=== PATIENT | female | born 1980 | race Caucasian/White ===

== ENCOUNTER 2018-05-07 15:20 | Inpatient (IN) | payer OTHER ==
--- NOTE | 2018-05-07 17:45 | HP ---
"CIWA Score - CIWA Score Nausea/Vomitin-Cont. Nausea/Vomiting Muscle Tremors: 7-Severe,w/o Arm Extended Anxiety: 4-Mod. Anxious/Guarded Agitation: 4-Moderately Restless Paroxysmal Sweats: 4-Forehead w/Sweat Beads Orientation: 0-Oriented Tacttile Disturbances: 4-Moderate Hallucinations (Feels like things are crawling on skin) Auditory Disturbances: 0-None Visual Disturbances: 0-None Headache: 0-None Present CIWA-Ar Total Score: 30 Admission ROS S - HPI Chief Complaint: Here for severe alcohol withdrawal. Allergies/Adverse Reactions: Allergies Allergy/AdvReac Type Severity Reaction Status Date / Time No Known Allergies Allergy Verified 05/07/18 16:42 History of Present Illness: 38 yof fell on face yesterday r/t alcohol intoxication. Had a MRI while in [facility] ER. States has no bone damage. States no visual changes. States facial injury only hurts when it is touched. Was discharged [facility] ER today after receiving Libruim 50 mg, Vit B, and Thiamine. last drink was yesterday. Started drinking a lot at about age 23. Currently drinks 2 pints vodka daily. Denies illicit drug use. Has had 3-5 years of sobriety in past. Search Terms: Liza Gupta, 1980 Search Date: 05/07/2018 05:48:02 PM The Drug Utilization Report below displays all of the controlled substance prescriptions, if any, that your patient has filled in the last twelve months. The information displayed on this report is compiled from pharmacy submissions to the Department, and accurately reflects the information as submitted by the pharmacies. This report was requested by: Kenya Valadez | Reference #: [id number] . Others' Prescriptions Patient Name: Liza Gupta Date: 1980 Address: [address] [place] [address] Sex: Female Rx Written Rx Dispensed Drug Quantity Days Supply Prescriber Name 01/06/2018 01/07/2018 chlordiazepoxide 25 mg capsule 12 3 Marlene Hester - Ebola screening Have you traveled outside of the country in the last 21 days: No (N) Have you had contact with anyone from an Ebola affected area: No Have you been sick,other than usual withdrawal symptoms: No Do you have a fever: No - Review of Systems Constitutional: Diaphoresis, Changes in sleep (Hx. insomnia. Used to take Trazodone and stopped 2 months ago. No driks to aid in sleep.) EENT: reports: Other (Glasses for reading only) Respiratory: reports: No Symptoms reported, Other (Hx asthma. No exacerbation x 6 months. Usually triggered by chemical smells.) Cardiac: reports: No Symptoms Reported GI: reports: Nausea (r/t withdrawal), Poor Appetite (Lost interest in eating.), Vomiting (r/t withdrawal. States has noticed a blood streak in vomitus when threws up.), Other (Denies bloody or black/tarry bowel movements.) : reports: No Symptoms Reported Musculoskeletal: reports: Joint Pain (Hurt (R) knee when fell.) Integumentary: reports: No Symptoms Reported Neuro: reports: Tremors (r/t withdrawal) Endocrine: reports: No Symptoms Reported Hematology: reports: No Symptoms Reported Psychiatric: reports: Orientated x3, Agitated, Anxious, Depressed (Denies thoughts of self harm.) Patient History - Patient Medical History Hx Asthma: Yes (Last exacerbation 6 months ago (wheezing)) Hx Chronic Obstructive Pulmonary Disease (COPD): No Hx Cancer: No Hx Cardiac Disorders: No Hx Congestive Heart Failure: No Hx Hypertension: No Hx Hypercholesterolemia: No Hx Pacemaker: No HX Cerebrovascular Accident: No Hx Seizures: No Hx Dementia: No Hx Diabetes: No Hx Gastrointestinal Disorders: No Hx Liver Disease: No Hx Genitourinary Disorders: No Hx Sexually Transmitted Disorders: No Hx Renal Disease (ESRD): No Hx Thyroid Disease: No Hx Human Immunodeficiency Virus (HIV): No (Negative 1 year ago) Hx Hepatitis C: No Hx Depression: Yes (x 1 month. No carlo. Denies thoughts of harm. ) Hx Suicide Attempt: No Hx Bipolar Disorder: No Hx Schizophrenia: No - Patient Surgical History Past Surgical History: Yes Hx Section: Yes (2013, 2001) - PPD History Previous Implant?: Yes Documented Results: Positive w/o proof (States chest x-ray was negative.) Implanted On Prior [facility] Admission?: No PPD to be Administered?: No - Reproductive History Patient is a Female of Child Bearing Age (11 -55 yrs old): Yes Last Menstrual Period: 03/23/18 (Irrgular menses) Patient : No - Smoking Cessation Smoking history: Never smoked Have you smoked in the past 12 months: No - Substance & Tx. History Hx Alcohol Use: Yes Hx Substance Use: No Substance Use Type: Alcohol Hx Substance Use Treatment: Yes (detox about 2 months ago. ) - Substances Abused Alcohol Route: Oral Frequency: Daily Amount used: 2 PINTS VODKA Age of first use: 18 Date of Last Use: 05/07/18 Admission Physical Exam [facility] - Physical General Appearance: Yes: Moderate Distress, Tremorous, Sweating, Anxious HEENTM: Yes: EOMI, Hearing grossly Normal, Normal Voice, EDITH, Other (Erythema ( R) sclera.) Respiratory: Yes: Chest Non-Tender, Lungs Clear, Normal Breath Sounds, No Respiratory Distress Neck: Yes: No masses,lesions,Nodules, Supple Breast: Yes: Breast Exam Deferred Cardiology: Yes: Regular Rhythm, Regular Rate, S1, S2 Abdominal: Yes: Non Tender, Soft, Increased Bowel Sounds Genitourinary: Yes: Within Normal Limits Back: Yes: Normal Inspection Musculoskeletal: Yes: full range of Motion, Gait Steady Extremities: Yes: Normal Capillary Refill, Normal Inspection, Normal Range of Motion, Non-Tender, Tremors (Gross tremors of hands and arms) Neurological: Yes: aircraft fueler II-XII NML intact, Fully Oriented, Motor Strength 5/5 Integumentary: Yes: Normal Color, Dry, Warm, Erythema ((R) forehead, eye and periorbital area. w/ swelling. Tender to touch.), Other (Superficial abrasion (R ) knee w/ yellowish and erythematous intact skin.) Lymphatic: Yes: Within Normal Limits - Diagnostic (1) Alcohol withdrawal Current Visit: Yes Status: Acute Qualifiers: Complication of substance-induced condition: uncomplicated Qualified Code(s ): F10.230 - Alcohol dependence with withdrawal, uncomplicated (2) History of asthma Current Visit: Yes Status: Acute (3) Obesity (BMI 30-39.9) Current Visit: Yes Status: Acute (4) Facial trauma Current Visit: Yes Status: Acute Qualifiers: Encounter type: subsequent encounter Qualified Code(s): S09.93XD - Unspecified injury of face, subsequent encounter Cleared for Admission [facility] - Detox or Rehab [facility] Level of Care: Medically Managed Detox Regimen/Protocol: Librium"
[2018-05-07] MEDS ORDERED: MAG HYDROX/AL HYDROX/SIMETH 30 ML UNIT-DOSE CUP PO PRN (18:32)
[2018-05-07] MEDS ORDERED: chlordiazePOXIDE HCL 25 MG CAPSULE PO PRN (18:32)
[2018-05-07] MEDS ORDERED: MAGNESIUM CITRATE 300 ML BOTTLE PO PRN (18:32)
[2018-05-07] MEDS ORDERED: guaiFENesin/D-METHORPHAN HB 10 ML UNIT-DOSE CUPS PO PRN (18:32)
[2018-05-07] MEDS ORDERED: LOPERAMIDE HCL 2 MG CAPSULE PO PRN (18:32)
[2018-05-07] MEDS ORDERED: IBUPROFEN 400 MG TABLET (FP) PO PRN (18:32)
[2018-05-07] MEDS ORDERED: P-EPHED 60MG/TRIPROLIDI 2.5MG TABLET PO PRN (18:32)
[2018-05-07] MEDS ORDERED: MAGNESIUM HYDROX 2400MG/30ML ORAL SUSPENSION 30 ML CUP PO PRN (18:32)
[2018-05-07] MEDS ORDERED: MENTHOL/PHENOL 1 EACH UD MM PRN (18:32)
[2018-05-07] MEDS ORDERED: chlordiazePOXIDE HCL 25 MG CAPSULE PO ONE (18:45)
[2018-05-07] MEDS: hydrOXYzine PAMOATE 50 MG CAPSULE (FP) PO PRN (20:29)
[2018-05-07] MEDS ORDERED: MELATONIN 5 MG TABLETS PO PRN (22:00)
[2018-05-07] MEDS: BACITRACIN 0.9 GM PACKET TP SCH (23:20)
[2018-05-07] MEDS: THIAMINE HCL 100 MG TABLET (FP) PO SCH (23:21)
[2018-05-07] MEDS: chlordiazePOXIDE HCL 25 MG CAPSULE PO SCH (23:23)
[2018-05-08] MEDS: chlordiazePOXIDE HCL 25 MG CAPSULE PO SCH ×4 (06:11→22:05)
--- NOTE | 2018-05-08 10:02 | PN ---
[facility] CIWA - CIWA Score Nausea/Vomitin Muscle Tremors: 2 Anxiety: 2 Agitation: 2 Paroxysmal Sweats: 2 Orientation: 0-Oriented Tacttile Disturbances: 2-Mild Itch/Numbness/Burn Auditory Disturbances: 1-Very Mild Visual Disturbances: 1-Very Mild Sensitivity Headache: 3-Moderate CIWA-Ar Total Score: 17 [facility] Progress Note (SOAP) Subjective: Headache, irritability, interrupted sleep, shakes and right eye pain Objective: 05/08/18 09:58 Vital Signs - 8 hr 05/08/18 05/08/18 03:30 06:00 Temperature 98.2 F Pulse Rate 82 Respiratory 16 18 Rate Blood Pressure 147/90 Labs pending Assessment: 05/08/18 09:58 Withdrawal sx Right sue-orbital ecchymosis, swelling, tenderness and mild redness to right sclera all r/t fall with facial injury. Evaluated in ED prior to this admission Elevated blood pressure likely due to alcohol withdrawal, no h/o chronic hypertension Plan: Continue detox, monitor blood pressure, treat headache as needed
[2018-05-08 10:23] LABS: HEMATOCRIT 37.7 % (32.4-45.2); MCH 32.6 pg (25.7-33.7); MCHC 34.4 g/dl (32.0-36.0); MEAN CELL VOLUME 94.9 fl (80-96); PLATELET COUNT 87 K/MM3 (134-434); RBC 3.98 M/mm3 (3.60-5.2); RDW 14.8 % (11.6-15.6); WHITE BLOOD COUNT 2.8 K/mm3 (4.0-10.0)
[2018-05-08 10:30] LABS: URINE APPEARANCE CLOUDY; URINE BILIRUBIN NEGATIVE (<2.0 mg/dL); URINE COLOR YELLOW; URINE GLUCOSE (UA) NEGATIVE (NEGATIVE); URINE KETONE TRACE (NEGATIVE); URINE LEUK ESTERASE NEGATIVE (NEGATIVE); URINE NITRITE NEGATIVE (NEGATIVE); URINE UROBILINOGEN NEGATIVE mg/dL (0.2-1.0)
[2018-05-08 10:33] LABS: URINE PROTEIN 1+ (NEGATIVE)
[2018-05-08 10:47] LABS: EPI CELLS MANY /HPF (FEW); URINE BACTERIA RARE /hpf (NONE SEEN); URINE MUCUS RARE
[2018-05-08 10:50] LABS: ALBUMIN 3.2 g/dl (3.4-5.0); ALK PHOS 65 U/L (45-117); ANION GAP 8 (8-16); BILIRUBIN,TOTAL 1.6 mg/dL (0.2-1.0); BLOOD UREA NITROGEN 6 mg/dL (7-18); CALCIUM 7.9 mg/dL (8.5-10.1); CHLORIDE 102 mmol/L (98-107); CO2 30 mmol/L (21-32); CREATININE 0.7 mg/dL (0.55-1.02); GLUCOSE,RANDOM 82 mg/dL (74-106); POTASSIUM 3.3 mmol/L (3.5-5.1); SGOT/AST 54 U/L (15-37); SGPT/ALT 35 U/L (12-78); SODIUM 140 mmol/L (136-145); TOT PROT 7.2 g/dl (6.4-8.2)
[2018-05-08] MEDS: BACITRACIN 0.9 GM PACKET TP SCH ×2 (11:13→22:05)
[2018-05-08] MEDS: PRENATAL VITAMINS W/ FOLIC ACID TABLET (FP) PO SCH (11:13)
[2018-05-08] MEDS: hydrOXYzine PAMOATE 50 MG CAPSULE (FP) PO PRN ×2 (17:40→22:08)
--- NOTE | 2018-05-08 18:34 | CONSULT ---
[facility] Psychiatric Consult - Data Date of interview: 05/08/18 Admission source: [facility] Identifying data: First admission to [facility] for this 38 y/o female seeking detox treatment on for alcohool dependence.Patient is , a mother of three,domiciled,unemployed and supported on Public Assistance. Substance Abuse History: Discussed with the patient in my interview.Confirms this [facility] report.Smoking history: Never smoked. Have you smoked in the past 12 months: No. - Substance & Tx. History. Hx Alcohol Use: Yes. Hx Substance Use : No. Substance Use Type: Alcohol. Hx Substance Use Treatment: Yes (detox about 2 months ago. ). - Substances Abused. Alcohol. Route: Oral. Frequency: Daily. Amount used: 2 PINTS VODKA. Age of first use: 18. Date of Last Use: 05/07/18 Medical History: Bronchial asthma,obesity,recent history of accidental fall during acute alcohol intoxication (facial bruises + right orbital ecchymosis) .History of two sections. Psychiatric History: Patient admits to a history of one psychiatric hospitalization at the [facility] (3 months ago) .Diagnosed with MDD.According to the patient, she was prescribed psychotropics but she declined adherence and did not follow with aftercare.No afffiliation with OPD care providers.Ms Gupta denies history of suicide attempts. Physical/Sexual Abuse/Trauma History: Stressors : marital difficulties, unemployment,inability to pay rent (lives with her parents),financial constraints and struggle with her dependence on alcohol. Additional Comment: No toxicology to report. Mental Status Exam - Mental Status Exam Alert and Oriented to: Time, Place, Person Cognitive Function: Good Patient Appearance: Well Groomed (overweight) Mood: Nervous, Withdrawn, Anxious Affect: Mood Congruent, Constricted Patient Behavior: Fatigued, Appropriate, Cooperative Speech Pattern: Clear (setswana speaking), Appropriate Voice Loudness: Normal Thought Process: Intact, Goal Oriented Thought Disorder: Not Present Hallucinations: Denies Suicidal Ideation: Denies Homicidal Ideation: Denies Insight/Judgement: Fair Sleep: Fair Appetite: Fair Muscle strength/Tone: Normal Gait/Station: Other (not observed ; patient indicates that she prefers to stay in bed due to unsteady gait) Psychiatric Findings - Problem List ([place] 1, 2,3) (1) Alcohol withdrawal Current Visit: Yes Status: Acute Qualifiers: Complication of substance-induced condition: uncomplicated Qualified Code(s ): F10.230 - Alcohol dependence with withdrawal, uncomplicated (2) Substance induced mood disorder Current Visit: Yes Status: Suspected - Initial Treatment Plan Initial Treatment Plan: Psychoeducation.Sleep hygiene.Detoxification.Support.Observation.
[2018-05-08] MEDS: THIAMINE HCL 100 MG TABLET (FP) PO SCH (22:05)
[2018-05-09] MEDS: chlordiazePOXIDE HCL 25 MG CAPSULE PO SCH ×3 (05:47→17:41)
[2018-05-09] MEDS: PRENATAL VITAMINS W/ FOLIC ACID TABLET (FP) PO SCH (10:13)
[2018-05-09] MEDS: BACITRACIN 0.9 GM PACKET TP SCH ×2 (10:13→22:31)
[2018-05-09] MEDS: hydrOXYzine PAMOATE 50 MG CAPSULE (FP) PO PRN ×3 (12:31→22:34)
--- NOTE | 2018-05-09 14:54 | PN ---
S CIWA - CIWA Score Nausea/Vomitin-Mild Nausea/No Vomiting Muscle Tremors: 4-Moderate,w/Arms Extend Anxiety: 3 Agitation: 3 Paroxysmal Sweats: 1-Minimal Palms Moist Orientation: 0-Oriented Tacttile Disturbances: 0-None Auditory Disturbances: 0-None Visual Disturbances: 0-None Headache: 2-Mild CIWA-Ar Total Score: 14 [facility] Progress Note (SOAP) Subjective: sweat tremor restlessness denies right eye pain denies alteration in vision Objective: 05/09/18 14:55 Vital Signs Temperature 97.7 F 05/09/18 10:00 Pulse Rate 88 05/09/18 10:00 Respiratory Rate 18 05/09/18 10:00 Blood Pressure 121/91 05/09/18 10:00 O2 Sat by Pulse Oximetry (%) Laboratory Last Values WBC 2.8 K/mm3 (4.0-10.0) L 05/08/18 08:00 RBC 3.98 M/mm3 (3.60-5.2) 05/08/18 08:00 Hgb 13.0 GM/dL (10.7-15.3) 05/08/18 08:00 Hct 37.7 % (32.4-45.2) 05/08/18 08:00 MCV 94.9 fl (80-96) 05/08/18 08:00 MCH 32.6 pg (25.7-33.7) 05/08/18 08:00 MCHC 34.4 g/dl (32.0-36.0) 05/08/18 08:00 RDW 14.8 % (11.6-15.6) 05/08/18 08:00 Plt Count 87 K/MM3 (134-434) L 05/08/18 08:00 MPV 9.0 fl (7.5-11.1) 05/08/18 08:00 Sodium 140 mmol/L (136-145) 05/08/18 08:00 Potassium 3.3 mmol/L (3.5-5.1) L 05/08/18 08:00 Chloride 102 mmol/L (98-107) 05/08/18 08:00 Carbon Dioxide 30 mmol/L (21-32) 05/08/18 08:00 Anion Gap 8 (8-16) 05/08/18 08:00 BUN 6 mg/dL (7-18) L 05/08/18 08:00 Creatinine 0.7 mg/dL (0.55-1.02) 05/08/18 08:00 Creat Clearance w eGFR > 60 (>60) 05/08/18 08:00 Random Glucose 82 mg/dL (74-106) 05/08/18 08:00 Calcium 7.9 mg/dL (8.5-10.1) L 05/08/18 08:00 Total Bilirubin 1.6 mg/dL (0.2-1.0) H 05/08/18 08:00 AST 54 U/L (15-37) H 05/08/18 08:00 ALT 35 U/L (12-78) 05/08/18 08:00 Alkaline Phosphatase 65 U/L (45-117) 05/08/18 08:00 Total Protein 7.2 g/dl (6.4-8.2) 05/08/18 08:00 Albumin 3.2 g/dl (3.4-5.0) L 05/08/18 08:00 Urine Color Yellow 05/08/18 08:20 Urine Appearance Cloudy 05/08/18 08:20 Urine pH 8.0 (5.0-8.0) 05/08/18 08:20 Ur Specific [place] 1.014 (1.001-1.035) 05/08/18 08:20 Urine Protein 1+ (NEGATIVE) H 05/08/18 08:20 Urine Glucose (UA) Negative (NEGATIVE) 05/08/18 08:20 Urine Ketones Trace (NEGATIVE) H 05/08/18 08:20 Urine Blood Negative (NEGATIVE) 05/08/18 08:20 Urine Nitrite Negative (NEGATIVE) 05/08/18 08:20 Urine Bilirubin Negative (<2.0 mg/dL) 05/08/18 08:20 Urine Urobilinogen Negative mg/dL (0.2-1.0) 05/08/18 08:20 Ur Leukocyte Esterase Negative (NEGATIVE) 05/08/18 08:20 Urine WBC (Auto) 4 /hpf (3-5) 05/08/18 08:20 Urine RBC (Auto) 1 /hpf (0-3) 05/08/18 08:20 Ur Epithelial Cells Many /HPF (FEW) 05/08/18 08:20 Urine Bacteria Rare /hpf (NONE SEEN) 05/08/18 08:20 Urine Mucus Rare 05/08/18 08:20 RPR Titer Nonreactive (NONREACTIVE) 05/08/18 08:00 lab noted low K+ low wbc Assessment: 05/09/18 14:58 withdrawal sx low K+ Plan: continue detox potassium supplement repeat K+
[2018-05-09] MEDS: POTASSIUM CHLORIDE TABS 20 MEQ TABLET.ER (FP) PO SCH ×2 (15:07→22:31)
[2018-05-09] MEDS: THIAMINE HCL 100 MG TABLET (FP) PO SCH (22:31)
[2018-05-09] MEDS: chlordiazePOXIDE 5 MG CAPSULE PO SCH (22:31)
[2018-05-10] MEDS: chlordiazePOXIDE 5 MG CAPSULE PO SCH ×3 (05:16→16:57)
[2018-05-10] MEDS: POTASSIUM CHLORIDE TABS 20 MEQ TABLET.ER (FP) PO SCH ×2 (10:10→22:12)
[2018-05-10] MEDS: BACITRACIN 0.9 GM PACKET TP SCH ×2 (10:10→22:12)
[2018-05-10] MEDS: PRENATAL VITAMINS W/ FOLIC ACID TABLET (FP) PO SCH (10:10)
[2018-05-10] MEDS: ACETAMINOPHEN 325 MG TABLET (FP) PO PRN ×2 (10:11→17:02)
[2018-05-10 11:11] LABS: HEMATOCRIT 37.2 % (32.4-45.2); HEMOGLOBIN 12.7 GM/dL (10.7-15.3); MCH 32.7 pg (25.7-33.7); MEAN PLT VOLUME 9.4 fl (7.5-11.1); PLATELET COUNT 99 K/MM3 (134-434); RBC 3.87 M/mm3 (3.60-5.2); RDW 14.4 % (11.6-15.6); WHITE BLOOD COUNT 5.4 K/mm3 (4.0-10.0)
--- NOTE | 2018-05-10 12:07 | PN ---
S Progress Note (SOAP) Subjective: no tremor less sweat calm and alert oriented x 3 no acute distress social with peer sin day room Objective: 05/10/18 12:04 Vital Signs Temperature 97.7 F 05/10/18 09:52 Pulse Rate 75 05/10/18 09:52 Respiratory Rate 20 05/10/18 09:52 Blood Pressure 125/81 05/10/18 09:52 O2 Sat by Pulse Oximetry (%) Laboratory Last Values WBC 5.4 K/mm3 (4.0-10.0) 05/10/18 07:00 RBC 3.87 M/mm3 (3.60-5.2) 05/10/18 07:00 Hgb 12.7 GM/dL (10.7-15.3) 05/10/18 07:00 Hct 37.2 % (32.4-45.2) 05/10/18 07:00 MCV 96.0 fl (80-96) 05/10/18 07:00 MCH 32.7 pg (25.7-33.7) 05/10/18 07:00 MCHC 34.0 g/dl (32.0-36.0) 05/10/18 07:00 RDW 14.4 % (11.6-15.6) 05/10/18 07:00 Plt Count 99 K/MM3 (134-434) L 05/10/18 07:00 MPV 9.4 fl (7.5-11.1) 05/10/18 07:00 Sodium 140 mmol/L (136-145) 05/08/18 08:00 Potassium 4.3 mmol/L (3.5-5.1) 05/10/18 07:00 Chloride 102 mmol/L (98-107) 05/08/18 08:00 Carbon Dioxide 30 mmol/L (21-32) 05/08/18 08:00 Anion Gap 8 (8-16) 05/08/18 08:00 BUN 6 mg/dL (7-18) L 05/08/18 08:00 Creatinine 0.7 mg/dL (0.55-1.02) 05/08/18 08:00 Creat Clearance w eGFR > 60 (>60) 05/08/18 08:00 Random Glucose 82 mg/dL (74-106) 05/08/18 08:00 Calcium 7.9 mg/dL (8.5-10.1) L 05/08/18 08:00 Total Bilirubin 1.6 mg/dL (0.2-1.0) H 05/08/18 08:00 AST 54 U/L (15-37) H 05/08/18 08:00 ALT 35 U/L (12-78) 05/08/18 08:00 Alkaline Phosphatase 65 U/L (45-117) 05/08/18 08:00 Total Protein 7.2 g/dl (6.4-8.2) 05/08/18 08:00 Albumin 3.2 g/dl (3.4-5.0) L 05/08/18 08:00 Urine Color Yellow 05/08/18 08:20 Urine Appearance Cloudy 05/08/18 08:20 Urine pH 8.0 (5.0-8.0) 05/08/18 08:20 Ur Specific [place] 1.014 (1.001-1.035) 05/08/18 08:20 Urine Protein 1+ (NEGATIVE) H 05/08/18 08:20 Urine Glucose (UA) Negative (NEGATIVE) 05/08/18 08:20 Urine Ketones Trace (NEGATIVE) H 05/08/18 08:20 Urine Blood Negative (NEGATIVE) 05/08/18 08:20 Urine Nitrite Negative (NEGATIVE) 05/08/18 08:20 Urine Bilirubin Negative (<2.0 mg/dL) 05/08/18 08:20 Urine Urobilinogen Negative mg/dL (0.2-1.0) 05/08/18 08:20 Ur Leukocyte Esterase Negative (NEGATIVE) 05/08/18 08:20 Urine WBC (Auto) 4 /hpf (3-5) 05/08/18 08:20 Urine RBC (Auto) 1 /hpf (0-3) 05/08/18 08:20 Ur Epithelial Cells Many /HPF (FEW) 05/08/18 08:20 Urine Bacteria Rare /hpf (NONE SEEN) 05/08/18 08:20 Urine Mucus Rare 05/08/18 08:20 RPR Titer Nonreactive (NONREACTIVE) 05/08/18 08:00 lab noted Assessment: 05/10/18 12:06 mild withdrawal sx Plan: medically supervised detox oscal
[2018-05-10] MEDS: hydrOXYzine PAMOATE 50 MG CAPSULE (FP) PO PRN ×2 (12:35→17:49)
[2018-05-10] MEDS: RANITIDINE HCL 150 MG TABLET (FP) PO SCH ×2 (12:39→22:12)
[2018-05-10] MEDS: CALCIUM 250MG/VIT-D 125 UNITS 1 COMBO TABLET PO SCH (13:47)
[2018-05-10] MEDS: chlordiazePOXIDE HCL 10 MG CAPSULE PO SCH (22:13)
[2018-05-10] MEDS: THIAMINE HCL 100 MG TABLET (FP) PO SCH (22:14)
[2018-05-10] MEDS: ALBUTEROL SO4 8 GM HFA INHALER IH PRN (22:40)
[2018-05-11] MEDS: chlordiazePOXIDE HCL 10 MG CAPSULE PO SCH ×3 (05:39→17:49)
[2018-05-11] MEDS: hydrOXYzine PAMOATE 50 MG CAPSULE (FP) PO PRN ×2 (05:41→14:27)
--- NOTE | 2018-05-11 08:43 | DS ---
[facility] Detox Discharge Summary Admission Date: 05/07/18 Discharge Date: 05/11/18 - History Present History: Alcohol Dependence Additional Comments: 38 years old female admitted on 05/07/18 for alcohol withdrawal sx completed alcohol detox regimen tolerated well denies alcohol withdrawal sx alert oriented x 3 no acute distress aftercare revelation - Physical Exam Results Vital Signs: Vital Signs Temperature 97.7 F 05/11/18 08:02 Pulse Rate 79 05/11/18 08:02 Respiratory Rate 18 05/11/18 08:02 Blood Pressure 126/74 05/11/18 08:02 O2 Sat by Pulse Oximetry (%) Pertinent Admission Physical Exam Findings: alcohol withdrawal sx Vital Signs Temperature 97.7 F 05/11/18 08:02 Pulse Rate 79 05/11/18 08:02 Respiratory Rate 18 05/11/18 08:02 Blood Pressure 126/74 05/11/18 08:02 O2 Sat by Pulse Oximetry (%) Laboratory Last Values WBC 5.4 K/mm3 (4.0-10.0) 05/10/18 07:00 RBC 3.87 M/mm3 (3.60-5.2) 05/10/18 07:00 Hgb 12.7 GM/dL (10.7-15.3) 05/10/18 07:00 Hct 37.2 % (32.4-45.2) 05/10/18 07:00 MCV 96.0 fl (80-96) 05/10/18 07:00 MCH 32.7 pg (25.7-33.7) 05/10/18 07:00 MCHC 34.0 g/dl (32.0-36.0) 05/10/18 07:00 RDW 14.4 % (11.6-15.6) 05/10/18 07:00 Plt Count 99 K/MM3 (134-434) L 05/10/18 07:00 MPV 9.4 fl (7.5-11.1) 05/10/18 07:00 Sodium 140 mmol/L (136-145) 05/08/18 08:00 Potassium 4.3 mmol/L (3.5-5.1) 05/10/18 07:00 Chloride 102 mmol/L (98-107) 05/08/18 08:00 Carbon Dioxide 30 mmol/L (21-32) 05/08/18 08:00 Anion Gap 8 (8-16) 05/08/18 08:00 BUN 6 mg/dL (7-18) L 05/08/18 08:00 Creatinine 0.7 mg/dL (0.55-1.02) 05/08/18 08:00 Creat Clearance w eGFR > 60 (>60) 05/08/18 08:00 Random Glucose 82 mg/dL (74-106) 05/08/18 08:00 Calcium 7.9 mg/dL (8.5-10.1) L 05/08/18 08:00 Total Bilirubin 1.6 mg/dL (0.2-1.0) H 05/08/18 08:00 AST 54 U/L (15-37) H 05/08/18 08:00 ALT 35 U/L (12-78) 05/08/18 08:00 Alkaline Phosphatase 65 U/L (45-117) 05/08/18 08:00 Total Protein 7.2 g/dl (6.4-8.2) 05/08/18 08:00 Albumin 3.2 g/dl (3.4-5.0) L 05/08/18 08:00 Urine Color Yellow 05/08/18 08:20 Urine Appearance Cloudy 05/08/18 08:20 Urine pH 8.0 (5.0-8.0) 05/08/18 08:20 Ur Specific [place] 1.014 (1.001-1.035) 05/08/18 08:20 Urine Protein 1+ (NEGATIVE) H 05/08/18 08:20 Urine Glucose (UA) Negative (NEGATIVE) 05/08/18 08:20 Urine Ketones Trace (NEGATIVE) H 05/08/18 08:20 Urine Blood Negative (NEGATIVE) 05/08/18 08:20 Urine Nitrite Negative (NEGATIVE) 05/08/18 08:20 Urine Bilirubin Negative (<2.0 mg/dL) 05/08/18 08:20 Urine Urobilinogen Negative mg/dL (0.2-1.0) 05/08/18 08:20 Ur Leukocyte Esterase Negative (NEGATIVE) 05/08/18 08:20 Urine WBC (Auto) 4 /hpf (3-5) 05/08/18 08:20 Urine RBC (Auto) 1 /hpf (0-3) 05/08/18 08:20 Ur Epithelial Cells Many /HPF (FEW) 05/08/18 08:20 Urine Bacteria Rare /hpf (NONE SEEN) 05/08/18 08:20 Urine Mucus Rare 05/08/18 08:20 RPR Titer Nonreactive (NONREACTIVE) 05/08/18 08:00 lab noted - Treatment Hospital Course: Detox Protocol Followed, Detoxed Safely, Responded well, Discharged Condition Good, Rehab Referral Accepted Patient has Accepted a Rehab Referral to: [facility] - Medication Discharge Medications: Ambulatory Orders Albuterol Sulfate Inhaler - [Ventolin HFA Inhaler -] 1 - 2 inh PO Q4H #1 inhaler 05/10/18 - Diagnosis (1) Alcohol dependence with uncomplicated withdrawal Current Visit: Yes Status: Acute (2) Substance induced mood disorder Current Visit: Yes Status: Suspected - AMA Did Patient Leave Against Medical Advice: No
[2018-05-11] MEDS: PRENATAL VITAMINS W/ FOLIC ACID TABLET (FP) PO SCH (10:52)
[2018-05-11] MEDS: POTASSIUM CHLORIDE TABS 20 MEQ TABLET.ER (FP) PO SCH (10:52)
[2018-05-11] MEDS: RANITIDINE HCL 150 MG TABLET (FP) PO SCH (10:53)
[2018-05-11] MEDS: BACITRACIN 0.9 GM PACKET TP SCH (10:53)
[2018-05-11] MEDS: CALCIUM 250MG/VIT-D 125 UNITS 1 COMBO TABLET PO SCH (11:21)
[2018-05-11 18:02] VITALS: BP 133/88; PULSE 93; TEMP 98.4
[2018-05-11] MEDS: ALBUTEROL SO4 8 GM HFA INHALER IH PRN (18:08)
== END 2018-05-11 18:10 | disposition other institution (70) | DRG 775 ==
LOC: YASAS 15:20 → Y6N 17:10
PROVIDERS: ADMIT Surgery; ATTEND Surgery
PROC: HZ2ZZZZ Detoxification Services for Substance Abuse Treatment (ICD-10-PCS; principal; 2018-05-07)
DX: F10.230 Alcohol dependence with withdrawal, uncomplicated (principal); F19.24 Other psychoactive substance dependence with psychoactive substance-induced mood disorder; J45.909 Unspecified asthma, uncomplicated; E66.9 Obesity, unspecified; Z68.30 Body mass index [BMI] 30.0-30.9, adult; S09.93XD Unspecified injury of face, subsequent encounter; W19.XXXD Unspecified fall, subsequent encounter
CPT/HCPCS: 36415; 71046-TC-FY; 80053; 81003; 81015; 84132; 85027; 86593

== ENCOUNTER 2018-05-11 18:38 | Inpatient (IN) | payer OTHER ==
[2018-05-11] MEDS ORDERED: ALBUTEROL SO4 8 GM HFA INHALER IH PRN (19:14)
--- NOTE | 2018-05-11 19:14 | HP ---
[facility] Rehab Assess/Revision - Admission History Admitted to Rehab from: [facility] Date of Admission to Rehab: 05/11/18 - Findings Detox History & Physical reviewed: Yes Concur with findings: Yes Inpatient Rehab Admission - Initial Determination Are CD services needed?: Yes Free of communicable disease: Yes Not in need of hospitalization: Yes - Rehab Admission Criteria Previous failed treatment: Yes Poor recovery environment: Yes Comorbidities: Yes Lacks judgement: Yes Patient is meeting Inpatient Rehab admission criteria:: Yes
[2018-05-11] MEDS ORDERED: P-EPHED 60MG/TRIPROLIDI 2.5MG TABLET PO PRN (19:15)
[2018-05-11] MEDS ORDERED: ACETAMINOPHEN 325 MG TABLET (FP) PO PRN (19:15)
[2018-05-11] MEDS ORDERED: guaiFENesin/D-METHORPHAN HB 10 ML UNIT-DOSE CUPS PO PRN (19:15)
[2018-05-11] MEDS ORDERED: MAGNESIUM HYDROX 2400MG/30ML ORAL SUSPENSION 30 ML CUP PO PRN (19:15)
[2018-05-11] MEDS ORDERED: MAGNESIUM CITRATE 300 ML BOTTLE PO PRN (19:15)
[2018-05-11] MEDS ORDERED: MENTHOL/PHENOL 1 EACH UD MM PRN (19:15)
[2018-05-11] MEDS ORDERED: LOPERAMIDE HCL 2 MG CAPSULE PO PRN (19:15)
[2018-05-11] MEDS: THIAMINE HCL 100 MG TABLET (FP) PO SCH (22:24)
[2018-05-11] MEDS: traZODone HCL 50 MG TABLET (FP) PO SCH (22:24)
--- NOTE | 2018-05-12 07:48 | HP ---
Psychiatrist Admission - Data Date of interview: 05/12/18 Admission [facility] Identifying data: This is the first admission to [address] [place] [address] for this 38 years old mother of 3 (youngest 4 yo girl resides with the patient's parents),homeless,supported by [employer]. Medical History: Significant for BA,Obesity,Facial trauma Psychiatric History: Patient reports depressed mood,anxiety exacerbated recently by drinking heavily.She was admitted to [facility] 3 months ago due to severe depression,insomnia.Patient was placed on psychotropic medications but didnt continued,she reports depressed mood,anxiety and is willing to start medications. Physical/Sexual Abuse/Trauma History: relationship problems Vital Signs: Vital Signs - 24 hr 05/12/18 05/12/18 03:30 07:39 Temperature 97.8 F Pulse Rate 88 Respiratory 18 18 Rate Blood Pressure 119/85 Allergies/Adverse Reactions: Allergies Allergy/AdvReac Type Severity Reaction Status Date / Time No Known Allergies Allergy Verified 05/07/18 16:42 Date of last physical exam: 06/07/18 Concur with the findings of this exam: Yes - Substance Abuse/Tx History Hx Alcohol Use: Yes (reports drinking since 14 yo.1-2 pints of hard liquors daily) Hx Substance Use: No Substance Use Type: Alcohol Hx Substance Use Treatment: Yes (completed inpatient rehab 3 months ago, relapsed right after) Mental Status Exam - Mental Status Exam Alert and Oriented to: Time, Place, Person Cognitive Function: Grossly Intact Patient Appearance: Unkempt Mood: Sad, Anxious Affect: Mood Congruent, Labile Patient Behavior: Cooperative Speech Pattern: Clear Voice Loudness: Normal Thought Process: Goal Oriented Thought Disorder: Not Present Hallucinations: Denies Suicidal Ideation: Denies Homicidal Ideation: Denies Insight/Judgement: Fair Sleep: Fair Appetite: Good, Weight gain Muscle strength/Tone: Normal Gait/Station: Normal Psychiatric Findings - Problem List ([place] 1, 2,3) (1) Alcohol dependence with uncomplicated withdrawal Current Visit: Yes Status: Chronic (2) History of asthma Current Visit: Yes Status: Chronic (3) Obesity (BMI 30-39.9) Current Visit: Yes Status: Chronic (4) Substance induced mood disorder Current Visit: Yes Status: Chronic - Initial Treatment Plan Initial Treatment Plan: Trazodone 50 mg po hs.Will monitor progress.
[2018-05-12] MEDS: PRENATAL VITAMINS W/ FOLIC ACID TABLET (FP) PO SCH (09:48)
[2018-05-12] MEDS: hydrOXYzine PAMOATE 50 MG CAPSULE (FP) PO PRN ×3 (09:49→21:24)
[2018-05-12] MEDS: SERTRALINE HCL 50 MG TABLET (FP) PO SCH (11:30)
[2018-05-12] MEDS: MAG HYDROX/AL HYDROX/SIMETH 30 ML UNIT-DOSE CUP PO PRN ×2 (12:01→21:25)
[2018-05-12] MEDS: traZODone HCL 50 MG TABLET (FP) PO SCH (21:24)
[2018-05-12] MEDS: THIAMINE HCL 100 MG TABLET (FP) PO SCH (21:24)
[2018-05-13] MEDS: SERTRALINE HCL 50 MG TABLET (FP) PO SCH (10:13)
[2018-05-13] MEDS: PRENATAL VITAMINS W/ FOLIC ACID TABLET (FP) PO SCH (10:13)
[2018-05-13] MEDS: hydrOXYzine PAMOATE 50 MG CAPSULE (FP) PO PRN ×3 (10:14→21:45)
--- NOTE | 2018-05-13 14:00 | PN ---
[facility] Progress Note Note: Vital Signs Temperature 97.6 F 05/13/18 07:35 Pulse Rate 87 05/13/18 07:35 Respiratory Rate 18 05/13/18 07:35 Blood Pressure 107/78 05/13/18 07:35 O2 Sat by Pulse Oximetry (%) c/o acid reflux healing ecchymosis right eye from injury sustained prior to admission BS x4 non distended full ROm ambulating in the unit - acid reflux Plan: protonix 20 mg BID increase fluids ice ecchymosis area continue to monitor
[2018-05-13] MEDS: MAG HYDROX/AL HYDROX/SIMETH 30 ML UNIT-DOSE CUP PO PRN (15:58)
[2018-05-13] MEDS: THIAMINE HCL 100 MG TABLET (FP) PO SCH (21:44)
[2018-05-13] MEDS: traZODone HCL 50 MG TABLET (FP) PO SCH (21:44)
[2018-05-13] MEDS: PANTOPRAZOLE 20 MG TABLET (FP) PO SCH (21:45)
[2018-05-14] MEDS: hydrOXYzine PAMOATE 50 MG CAPSULE (FP) PO PRN ×3 (10:40→21:58)
[2018-05-14] MEDS: PANTOPRAZOLE 20 MG TABLET (FP) PO SCH ×2 (10:40→21:58)
[2018-05-14] MEDS: SERTRALINE HCL 50 MG TABLET (FP) PO SCH (10:40)
[2018-05-14] MEDS: PRENATAL VITAMINS W/ FOLIC ACID TABLET (FP) PO SCH (10:40)
--- NOTE | 2018-05-14 13:31 | PN ---
S Progress Note Note: Vital Signs Temperature 97.8 F 05/14/18 07:01 Pulse Rate 91 H 05/14/18 07:01 Respiratory Rate 18 05/14/18 07:01 Blood Pressure 116/80 05/14/18 07:01 O2 Sat by Pulse Oximetry (%) c/o of dry skin. aveeno soap PRN increase fluids continue to monitor
[2018-05-14] MEDS: COLLOIDAL OATMEAL 1 BAR EACH TP PRN (17:11)
[2018-05-14] MEDS: THIAMINE HCL 100 MG TABLET (FP) PO SCH (21:58)
[2018-05-14] MEDS: traZODone HCL 50 MG TABLET (FP) PO SCH (21:58)
[2018-05-15] MEDS: PANTOPRAZOLE 20 MG TABLET (FP) PO SCH ×2 (10:16→21:34)
[2018-05-15] MEDS: hydrOXYzine PAMOATE 50 MG CAPSULE (FP) PO PRN ×3 (10:16→21:36)
[2018-05-15] MEDS: SERTRALINE HCL 50 MG TABLET (FP) PO SCH (10:16)
[2018-05-15] MEDS: PRENATAL VITAMINS W/ FOLIC ACID TABLET (FP) PO SCH (10:16)
[2018-05-15] MEDS: traZODone HCL 50 MG TABLET (FP) PO SCH (21:34)
[2018-05-15] MEDS: THIAMINE HCL 100 MG TABLET (FP) PO SCH (21:34)
[2018-05-16] MEDS: SERTRALINE HCL 50 MG TABLET (FP) PO SCH (10:24)
[2018-05-16] MEDS: PRENATAL VITAMINS W/ FOLIC ACID TABLET (FP) PO SCH (10:24)
[2018-05-16] MEDS: PANTOPRAZOLE 20 MG TABLET (FP) PO SCH ×2 (10:24→21:36)
[2018-05-16] MEDS: hydrOXYzine PAMOATE 50 MG CAPSULE (FP) PO PRN ×2 (10:25→18:08)
[2018-05-16] MEDS: DOCUSATE SODIUM 100 MG CAPSULE (FP) PO SCH ×2 (13:59→21:36)
[2018-05-16] MEDS: traZODone HCL 50 MG TABLET (FP) PO SCH (21:36)
[2018-05-16] MEDS: THIAMINE HCL 100 MG TABLET (FP) PO SCH (21:36)
[2018-05-17] MEDS: hydrOXYzine PAMOATE 50 MG CAPSULE (FP) PO PRN ×4 (06:26→21:53)
[2018-05-17] MEDS: DOCUSATE SODIUM 100 MG CAPSULE (FP) PO SCH ×2 (06:26→14:18)
[2018-05-17] MEDS: SERTRALINE HCL 50 MG TABLET (FP) PO SCH (09:28)
[2018-05-17] MEDS: PRENATAL VITAMINS W/ FOLIC ACID TABLET (FP) PO SCH (09:28)
[2018-05-17] MEDS: PANTOPRAZOLE 20 MG TABLET (FP) PO SCH ×2 (11:14→21:52)
--- NOTE | 2018-05-17 14:29 | PN ---
[facility] Progress Note Note: PATIENT SEEN FOR C/O FOUL SMELLING URINE. DENIES FEVER, URINARY FREQUENCY, DYSURIA AND URGENCY. Vital Signs Temperature 97.8 F 05/17/18 07:25 Pulse Rate 94 H 05/17/18 07:25 Respiratory Rate 18 05/17/18 07:25 Blood Pressure 112/82 05/17/18 07:25 O2 Sat by Pulse Oximetry (%) SKIN WARM AND DRY, PT ALERT AND ORIENTED X 3. NO CVAT, PELVIC TENDERNESS. AMBULATORY AD ABIMAEL. UA NEGATIVE NITRATES, LEUKOCYTES, + FEW BACTERIA. A/P: MALODOROUS URINE INCREASE ORAL FLUIDS IF SYMPTOMS PERSIST, CONSIDER REPEATING UA CONTINUE TO MONITOR CLINICALLY.
[2018-05-17] MEDS: traZODone HCL 50 MG TABLET (FP) PO SCH (21:52)
[2018-05-17] MEDS: THIAMINE HCL 100 MG TABLET (FP) PO SCH (21:52)
[2018-05-18] MEDS: SERTRALINE HCL 50 MG TABLET (FP) PO SCH (10:23)
[2018-05-18] MEDS: PRENATAL VITAMINS W/ FOLIC ACID TABLET (FP) PO SCH (10:23)
[2018-05-18] MEDS: PANTOPRAZOLE 20 MG TABLET (FP) PO SCH ×2 (10:23→21:49)
[2018-05-18] MEDS: hydrOXYzine PAMOATE 50 MG CAPSULE (FP) PO PRN ×3 (10:24→21:49)
[2018-05-18] MEDS: THIAMINE HCL 100 MG TABLET (FP) PO SCH (21:49)
[2018-05-18] MEDS: traZODone HCL 50 MG TABLET (FP) PO SCH (21:49)
[2018-05-19] MEDS: SERTRALINE HCL 50 MG TABLET (FP) PO SCH (10:08)
[2018-05-19] MEDS: PANTOPRAZOLE 20 MG TABLET (FP) PO SCH ×2 (10:08→21:53)
[2018-05-19] MEDS: PRENATAL VITAMINS W/ FOLIC ACID TABLET (FP) PO SCH (10:08)
[2018-05-19] MEDS: hydrOXYzine PAMOATE 50 MG CAPSULE (FP) PO PRN ×4 (10:08→21:54)
--- NOTE | 2018-05-19 14:38 | PN ---
S Progress Note Note: As per RN, patient continues with malodorous urine. Will repeat UA and urine culture. Vital Signs Temperature 97.9 F 05/19/18 06:49 Pulse Rate 86 05/19/18 06:49 Respiratory Rate 18 05/19/18 06:49 Blood Pressure 114/80 05/19/18 06:49 O2 Sat by Pulse Oximetry (%)
[2018-05-19] MEDS: THIAMINE HCL 100 MG TABLET (FP) PO SCH (21:53)
[2018-05-19] MEDS: traZODone HCL 50 MG TABLET (FP) PO SCH (21:54)
[2018-05-20 01:39] LABS: URINE APPEARANCE CLEAR; URINE BILIRUBIN NEGATIVE (<2.0 mg/dL); URINE COLOR LTYELLOW; URINE GLUCOSE (UA) NEGATIVE (NEGATIVE); URINE KETONE NEGATIVE (NEGATIVE); URINE LEUK ESTERASE NEGATIVE (NEGATIVE); URINE NITRITE NEGATIVE (NEGATIVE); URINE PROTEIN NEGATIVE (NEGATIVE); URINE UROBILINOGEN NEGATIVE mg/dL (0.2-1.0)
[2018-05-20] MEDS: PANTOPRAZOLE 20 MG TABLET (FP) PO SCH ×2 (10:11→22:02)
[2018-05-20] MEDS: PRENATAL VITAMINS W/ FOLIC ACID TABLET (FP) PO SCH (10:11)
[2018-05-20] MEDS: SERTRALINE HCL 50 MG TABLET (FP) PO SCH (10:11)
[2018-05-20] MEDS: hydrOXYzine PAMOATE 50 MG CAPSULE (FP) PO PRN ×3 (10:11→18:14)
[2018-05-20] MEDS: DOCUSATE SODIUM 100 MG CAPSULE (FP) PO PRN (22:01)
[2018-05-20] MEDS: THIAMINE HCL 100 MG TABLET (FP) PO SCH (22:02)
[2018-05-20] MEDS: traZODone HCL 50 MG TABLET (FP) PO SCH (22:02)
[2018-05-21] MEDS: PANTOPRAZOLE 20 MG TABLET (FP) PO SCH ×2 (10:09→21:37)
[2018-05-21] MEDS: PRENATAL VITAMINS W/ FOLIC ACID TABLET (FP) PO SCH (10:09)
[2018-05-21] MEDS: SERTRALINE HCL 50 MG TABLET (FP) PO SCH (10:09)
[2018-05-21] MEDS: hydrOXYzine PAMOATE 50 MG CAPSULE (FP) PO PRN ×3 (10:10→21:38)
--- NOTE | 2018-05-21 16:05 | PN ---
Psychiatric Progress Note Vital Signs: Vital Signs Period Temp Pulse Resp BP Sys/Beltran Pulse Ox Last 24 Hr 98.1 F 76 18-18 100/76 Date of Session: 05/21/18 Chief Complaint:: Shen feeling better but still depressed a t times. HPI: Patient addressed Alcohol dependence comorbid with Alcohol induced mood disorder. ROS: Obesity,BA. Current Medications: Active Medications Generic Name Dose Route Start Last Admin Trade Name Freq PRN Reason Stop Dose Admin Acetaminophen 650 mg 05/11/18 19:15 05/15/18 21:35 Tylenol - PO 650 mg Q4H PRN Administration FEVER Al Hydroxide/Mg Hydroxide 30 ml 05/11/18 19:15 05/13/18 15:58 Mylanta Oral Suspension - PO 30 ml Q6H PRN Administration DYSPEPSIA Albuterol Sulfate 2 puff 05/11/18 19:14 05/18/18 11:38 Ventolin Hfa Inhaler - IH 2 puff Q4H PRN Administration wheezing Colloidal Oatmeal 1 applic 05/14/18 13:30 05/14/18 17:11 Aveeno Soap - TP 1 applic DAILY PRN Administration HYGEINE Docusate Sodium 100 mg 05/17/18 14:19 05/20/18 22:01 Colace - PO 100 mg TID PRN Administration CONSTIPATION Eucalyptus/Menthol/Phenol/Sorbitol 1 each 05/11/18 19:15 Cepastat Lozenge - MM Q4H PRN SORE THROAT Guaifenesin 10 ml 05/11/18 19:15 Robitussin Dm - PO Q6H PRN COUGH Hydroxyzine Pamoate 50 mg 05/11/18 19:15 05/21/18 10:10 Vistaril - PO 50 mg Q4H PRN Administration AGITATION Ibuprofen 400 mg 05/11/18 19:15 Motrin - PO Q6H PRN Pain Level 4-6 Loperamide HCl 4 mg 05/11/18 19:15 Imodium - PO Q6H PRN DIARRHEA Magnesium Citrate 300 ml 05/11/18 19:15 Citroma - PO Q48H PRN CONSTIPATION Magnesium Hydroxide 30 ml 05/11/18 19:15 Milk Of Magnesia - PO DAILY PRN CONSTIPATION Melatonin 5 mg 05/11/18 22:00 Melatonin PO HS PRN INSOMNIA Pantoprazole Sodium 20 mg 05/13/18 22:00 05/21/18 10:09 Protonix - PO 20 mg BID DERRICK Administration Multivit/Folic Acid/Iron 1 tab 05/12/18 10:00 05/21/18 10:09 Vitamins (Sjr) - PO 1 tab DAILY DERRICK Administration Pseudoephedrine/Triprolidine 1 combo 05/11/18 19:15 Actifed - PO TID PRN NASAL CONGESTION Thiamine HCl 100 mg 05/11/18 22:00 05/20/18 22:02 Vitamin B1 - PO 100 mg HS DERRICK Administration Trazodone HCl 50 mg 05/11/18 22:00 05/20/18 22:02 Desyrel - PO 50 mg HS DERRICK Administration Current Side Effect: No Lab tests ordered: No Lab tests reviewed: Yes Provider note:: Chart was revuewed,patient was evaluated in my office to address some anxiety along with episodes of depressed mood.Properties of Zoloft has been discussed.Zoloft 50 mg po daily will be adjusted to 100 mg po daily. Supportive therapy provided focusing on relapse prevention,coping skills utilization has been discussed with the patient. Total face to face time:: 30 Mental Status Exam - Mental Status Exam Alert and Oriented to: Time, Place, Person Cognitive Function: Grossly Intact Patient Appearance: Well Groomed Mood: Sad, Anxious Affect: Labile Patient Behavior: Cooperative Speech Pattern: Clear Voice Loudness: Normal Thought Process: Goal Oriented Thought Disorder: Not Present Hallucinations: Denies Suicidal Ideation: Denies Homicidal Ideation: Denies Insight/Judgement: Fair Sleep: Fair Appetite: Good Muscle strength/Tone: Normal Gait/Station: Normal Psychiatric Treatment Plan - Problem List (1) Alcohol dependence with uncomplicated withdrawal Current Visit: Yes (2) History of asthma Current Visit: Yes (3) Obesity (BMI 30-39.9) Current Visit: Yes (4) Substance induced mood disorder Current Visit: Yes
[2018-05-21] MEDS: THIAMINE HCL 100 MG TABLET (FP) PO SCH (21:37)
[2018-05-21] MEDS: traZODone HCL 50 MG TABLET (FP) PO SCH (21:37)
[2018-05-21] MEDS: DOCUSATE SODIUM 100 MG CAPSULE (FP) PO PRN (21:39)
[2018-05-22] MEDS ORDERED: PT OWN MED DRAWER 7, Y5N ONE (09:48)
[2018-05-22] MEDS: hydrOXYzine PAMOATE 50 MG CAPSULE (FP) PO PRN ×3 (09:48→21:23)
[2018-05-22] MEDS: PANTOPRAZOLE 20 MG TABLET (FP) PO SCH ×2 (09:49→21:23)
[2018-05-22] MEDS: PRENATAL VITAMINS W/ FOLIC ACID TABLET (FP) PO SCH (09:49)
[2018-05-22] MEDS: SERTRALINE HCL 50 MG TABLET (FP) PO SCH (10:29)
[2018-05-22] MEDS: DOCUSATE SODIUM 100 MG CAPSULE (FP) PO PRN (21:23)
[2018-05-22] MEDS: IBUPROFEN 400 MG TABLET (FP) PO PRN (21:23)
[2018-05-22] MEDS: traZODone HCL 50 MG TABLET (FP) PO SCH (21:23)
[2018-05-22] MEDS: THIAMINE HCL 100 MG TABLET (FP) PO SCH (21:23)
[2018-05-23] MEDS: SERTRALINE HCL 50 MG TABLET (FP) PO SCH (10:01)
[2018-05-23] MEDS: PRENATAL VITAMINS W/ FOLIC ACID TABLET (FP) PO SCH (10:01)
[2018-05-23] MEDS: PANTOPRAZOLE 20 MG TABLET (FP) PO SCH ×2 (10:01→21:32)
[2018-05-23] MEDS: hydrOXYzine PAMOATE 50 MG CAPSULE (FP) PO PRN ×3 (10:02→21:33)
[2018-05-23] MEDS: THIAMINE HCL 100 MG TABLET (FP) PO SCH (21:32)
[2018-05-23] MEDS: traZODone HCL 50 MG TABLET (FP) PO SCH (21:32)
[2018-05-24] MEDS: SERTRALINE HCL 50 MG TABLET (FP) PO SCH (10:45)
[2018-05-24] MEDS: PRENATAL VITAMINS W/ FOLIC ACID TABLET (FP) PO SCH (10:45)
[2018-05-24] MEDS: PANTOPRAZOLE 20 MG TABLET (FP) PO SCH ×2 (10:45→21:50)
[2018-05-24] MEDS: hydrOXYzine PAMOATE 50 MG CAPSULE (FP) PO PRN ×3 (10:49→21:49)
[2018-05-24] MEDS: DOCUSATE SODIUM 100 MG CAPSULE (FP) PO PRN ×2 (10:49→21:50)
--- NOTE | 2018-05-24 13:58 | PN ---
[facility] Progress Note Note: PATIENT PRESENTS FOR UA RESULTS. PATIENT DENIES DYSURIA, FREQUENCY AND URGENCY. STATES URINE HAS "FUNNY" SMELL. DENIES VAGINAL DISCHARGE. MEDICALLY STABLE. AFEBRILE. Vital Signs Temperature 98.0 F 05/24/18 07:26 Pulse Rate 85 05/24/18 07:26 Respiratory Rate 18 05/24/18 07:26 Blood Pressure 105/72 05/24/18 07:26 O2 Sat by Pulse Oximetry (%) UA NEGATIVE FOR UTI WILL CONTINUE TO MONITOR CLINICALLY ENCOURAGE ORAL FLUIDS
[2018-05-24] MEDS: IBUPROFEN 400 MG TABLET (FP) PO PRN ×2 (15:24→21:50)
[2018-05-24] MEDS: THIAMINE HCL 100 MG TABLET (FP) PO SCH (21:50)
[2018-05-24] MEDS: traZODone HCL 50 MG TABLET (FP) PO SCH (21:50)
[2018-05-25] MEDS: PANTOPRAZOLE 20 MG TABLET (FP) PO SCH ×2 (10:12→21:50)
[2018-05-25] MEDS: PRENATAL VITAMINS W/ FOLIC ACID TABLET (FP) PO SCH (10:12)
[2018-05-25] MEDS: DOCUSATE SODIUM 100 MG CAPSULE (FP) PO PRN ×2 (10:12→21:50)
[2018-05-25] MEDS: hydrOXYzine PAMOATE 50 MG CAPSULE (FP) PO PRN ×3 (10:12→21:50)
[2018-05-25] MEDS: SERTRALINE HCL 50 MG TABLET (FP) PO SCH (10:13)
[2018-05-25] MEDS: THIAMINE HCL 100 MG TABLET (FP) PO SCH (21:50)
[2018-05-25] MEDS: traZODone HCL 50 MG TABLET (FP) PO SCH (21:50)
[2018-05-25] MEDS: IBUPROFEN 400 MG TABLET (FP) PO PRN (21:52)
[2018-05-25] MEDS: CHLORHEXIDINE GLUCONATE 118 ML MOUTHWASH MM SCH (21:54)
[2018-05-26] MEDS ORDERED: PT OWN MED DRAWER 7, Y5N ONE ×2 (08:25→20:28)
[2018-05-26] MEDS: CHLORHEXIDINE GLUCONATE 118 ML MOUTHWASH MM SCH ×2 (10:13→21:13)
[2018-05-26] MEDS: PRENATAL VITAMINS W/ FOLIC ACID TABLET (FP) PO SCH (10:14)
[2018-05-26] MEDS: DOCUSATE SODIUM 100 MG CAPSULE (FP) PO PRN ×2 (10:14→19:14)
[2018-05-26] MEDS: hydrOXYzine PAMOATE 50 MG CAPSULE (FP) PO PRN ×3 (10:14→22:17)
[2018-05-26] MEDS: SERTRALINE HCL 50 MG TABLET (FP) PO SCH (10:14)
[2018-05-26] MEDS: PANTOPRAZOLE 20 MG TABLET (FP) PO SCH ×2 (10:15→21:13)
[2018-05-26] MEDS: THIAMINE HCL 100 MG TABLET (FP) PO SCH (21:13)
[2018-05-26] MEDS: traZODone HCL 50 MG TABLET (FP) PO SCH (21:13)
[2018-05-26] MEDS: MELATONIN 5 MG TABLETS PO PRN (21:16)
[2018-05-27] MEDS: hydrOXYzine PAMOATE 50 MG CAPSULE (FP) PO PRN ×2 (09:48→21:33)
[2018-05-27] MEDS: PANTOPRAZOLE 20 MG TABLET (FP) PO SCH ×2 (09:49→21:34)
[2018-05-27] MEDS: CHLORHEXIDINE GLUCONATE 118 ML MOUTHWASH MM SCH ×2 (09:49→21:35)
[2018-05-27] MEDS: SERTRALINE HCL 50 MG TABLET (FP) PO SCH (09:49)
[2018-05-27] MEDS: DOCUSATE SODIUM 100 MG CAPSULE (FP) PO PRN ×2 (09:49→21:34)
[2018-05-27] MEDS: PRENATAL VITAMINS W/ FOLIC ACID TABLET (FP) PO SCH (09:49)
[2018-05-27] MEDS: traZODone HCL 50 MG TABLET (FP) PO SCH (21:34)
[2018-05-27] MEDS: THIAMINE HCL 100 MG TABLET (FP) PO SCH (21:34)
[2018-05-27] MEDS ORDERED: PT OWN MED DRAWER 7, Y5N ONE (21:35)
[2018-05-28] MEDS ORDERED: PT OWN MED DRAWER 7, Y5N ONE (08:33)
[2018-05-28] MEDS: hydrOXYzine PAMOATE 50 MG CAPSULE (FP) PO PRN ×2 (10:05→21:45)
[2018-05-28] MEDS: PANTOPRAZOLE 20 MG TABLET (FP) PO SCH ×2 (10:06→21:44)
[2018-05-28] MEDS: DOCUSATE SODIUM 100 MG CAPSULE (FP) PO PRN (10:06)
[2018-05-28] MEDS: PRENATAL VITAMINS W/ FOLIC ACID TABLET (FP) PO SCH (10:06)
[2018-05-28] MEDS: SERTRALINE HCL 50 MG TABLET (FP) PO SCH (10:06)
[2018-05-28] MEDS: CHLORHEXIDINE GLUCONATE 118 ML MOUTHWASH MM SCH ×2 (10:32→21:48)
--- NOTE | 2018-05-28 11:45 | PN ---
S Progress Note Note: PATIENT PRESENTS WITH C/O BURNING SENSATION FROM RECTUM WHEN DEFACATING. STATES STOOL IS SOFT BUT SHE STILL FEELS PRESSURE TO PUSH OUT STOOL. DENIES ANY BLEEDING FROM RECTUM. QUESTIONABLE HISTORY OF HEMORRHOIDS IN PAST. PE: PATIENT ALERT AND ORIENTED X 3. IN NAD. ABD NT AND ND. AMBULATING FREELY. IN NAD. A/P: HEMORRHOIDS. WILL CHANGE COLACE BID FROM PRN, ENCOURAGE ORAL HYDRATION. ANUSOL RECTAL CREAM BID. CONTINUE TO MONITOR CLINICALLY. Vital Signs Temperature 98.2 F 05/28/18 06:52 Pulse Rate 90 05/28/18 06:52 Respiratory Rate 18 05/28/18 06:52 Blood Pressure 108/75 05/28/18 06:52 O2 Sat by Pulse Oximetry (%)
[2018-05-28] MEDS: traZODone HCL 50 MG TABLET (FP) PO SCH (21:44)
[2018-05-28] MEDS: THIAMINE HCL 100 MG TABLET (FP) PO SCH (21:44)
[2018-05-28] MEDS: DOCUSATE SODIUM 100 MG CAPSULE (FP) PO SCH (21:44)
[2018-05-28] MEDS: HYDROCORTISONE 2.5% TOPICAL CREAM 30 GM TUBE TP SCH (21:46)
[2018-05-29] MEDS ORDERED: PT OWN MED DRAWER 7, Y5N ONE (09:20)
[2018-05-29] MEDS: CHLORHEXIDINE GLUCONATE 118 ML MOUTHWASH MM SCH ×2 (10:30→21:14)
[2018-05-29] MEDS: PRENATAL VITAMINS W/ FOLIC ACID TABLET (FP) PO SCH (10:30)
[2018-05-29] MEDS: PANTOPRAZOLE 20 MG TABLET (FP) PO SCH ×2 (10:30→21:13)
[2018-05-29] MEDS: SERTRALINE HCL 50 MG TABLET (FP) PO SCH (10:30)
[2018-05-29] MEDS: DOCUSATE SODIUM 100 MG CAPSULE (FP) PO SCH ×2 (10:30→21:13)
[2018-05-29] MEDS: hydrOXYzine PAMOATE 50 MG CAPSULE (FP) PO PRN ×3 (10:30→21:13)
[2018-05-29] MEDS: HYDROCORTISONE 2.5% TOPICAL CREAM 30 GM TUBE TP SCH ×2 (10:30→21:13)
[2018-05-29] MEDS: traZODone HCL 50 MG TABLET (FP) PO SCH (21:13)
[2018-05-29] MEDS: THIAMINE HCL 100 MG TABLET (FP) PO SCH (21:13)
[2018-05-30] MEDS ORDERED: PT OWN MED DRAWER 7, Y5N ONE ×2 (08:31→19:39)
[2018-05-30] MEDS: DOCUSATE SODIUM 100 MG CAPSULE (FP) PO SCH ×2 (10:01→21:42)
[2018-05-30] MEDS: PRENATAL VITAMINS W/ FOLIC ACID TABLET (FP) PO SCH (10:01)
[2018-05-30] MEDS: hydrOXYzine PAMOATE 50 MG CAPSULE (FP) PO PRN ×2 (10:01→21:42)
[2018-05-30] MEDS: PANTOPRAZOLE 20 MG TABLET (FP) PO SCH ×2 (10:01→21:42)
[2018-05-30] MEDS: SERTRALINE HCL 50 MG TABLET (FP) PO SCH (10:01)
[2018-05-30] MEDS: CHLORHEXIDINE GLUCONATE 118 ML MOUTHWASH MM SCH ×2 (10:02→21:42)
[2018-05-30] MEDS: HYDROCORTISONE 2.5% TOPICAL CREAM 30 GM TUBE TP SCH ×2 (10:03→21:42)
[2018-05-30] MEDS: traZODone HCL 50 MG TABLET (FP) PO SCH (21:42)
[2018-05-30] MEDS: THIAMINE HCL 100 MG TABLET (FP) PO SCH (21:42)
[2018-05-31] MEDS ORDERED: PT OWN MED DRAWER 7, Y5N ONE ×2 (09:05→20:04)
[2018-05-31] MEDS: PANTOPRAZOLE 20 MG TABLET (FP) PO SCH ×2 (10:12→21:39)
[2018-05-31] MEDS: PRENATAL VITAMINS W/ FOLIC ACID TABLET (FP) PO SCH (10:12)
[2018-05-31] MEDS: CHLORHEXIDINE GLUCONATE 118 ML MOUTHWASH MM SCH ×2 (10:12→21:39)
[2018-05-31] MEDS: DOCUSATE SODIUM 100 MG CAPSULE (FP) PO SCH ×2 (10:12→21:39)
[2018-05-31] MEDS: SERTRALINE HCL 50 MG TABLET (FP) PO SCH (10:12)
[2018-05-31] MEDS: hydrOXYzine PAMOATE 50 MG CAPSULE (FP) PO PRN ×3 (10:12→21:39)
[2018-05-31] MEDS: HYDROCORTISONE 2.5% TOPICAL CREAM 30 GM TUBE TP SCH ×2 (10:50→21:40)
[2018-05-31] MEDS: THIAMINE HCL 100 MG TABLET (FP) PO SCH (21:39)
[2018-05-31] MEDS: traZODone HCL 50 MG TABLET (FP) PO SCH (21:39)
[2018-06-01] MEDS: hydrOXYzine PAMOATE 50 MG CAPSULE (FP) PO PRN ×2 (10:16→21:34)
[2018-06-01] MEDS: DOCUSATE SODIUM 100 MG CAPSULE (FP) PO SCH ×2 (10:16→21:34)
[2018-06-01] MEDS: PRENATAL VITAMINS W/ FOLIC ACID TABLET (FP) PO SCH (10:16)
[2018-06-01] MEDS: SERTRALINE HCL 50 MG TABLET (FP) PO SCH (10:16)
[2018-06-01] MEDS: PANTOPRAZOLE 20 MG TABLET (FP) PO SCH ×2 (10:16→21:34)
[2018-06-01] MEDS: CHLORHEXIDINE GLUCONATE 118 ML MOUTHWASH MM SCH ×2 (10:17→21:35)
[2018-06-01] MEDS: HYDROCORTISONE 2.5% TOPICAL CREAM 30 GM TUBE TP SCH ×2 (10:17→21:35)
[2018-06-01] MEDS ORDERED: PT OWN MED DRAWER 7, Y5N ONE (19:55)
[2018-06-01] MEDS: traZODone HCL 50 MG TABLET (FP) PO SCH (21:34)
[2018-06-01] MEDS: THIAMINE HCL 100 MG TABLET (FP) PO SCH (21:34)
[2018-06-01] MEDS: COLLOIDAL OATMEAL 1 BAR EACH TP PRN (22:35)
[2018-06-02] MEDS ORDERED: PT OWN MED DRAWER 7, Y5N ONE ×2 (09:08→19:44)
[2018-06-02] MEDS: DOCUSATE SODIUM 100 MG CAPSULE (FP) PO SCH ×2 (10:11→21:40)
[2018-06-02] MEDS: PRENATAL VITAMINS W/ FOLIC ACID TABLET (FP) PO SCH (10:11)
[2018-06-02] MEDS: CHLORHEXIDINE GLUCONATE 118 ML MOUTHWASH MM SCH ×2 (10:11→21:41)
[2018-06-02] MEDS: PANTOPRAZOLE 20 MG TABLET (FP) PO SCH ×2 (10:12→21:40)
[2018-06-02] MEDS: hydrOXYzine PAMOATE 50 MG CAPSULE (FP) PO PRN ×3 (10:12→21:40)
[2018-06-02] MEDS: SERTRALINE HCL 50 MG TABLET (FP) PO SCH (10:12)
[2018-06-02] MEDS: HYDROCORTISONE 2.5% TOPICAL CREAM 30 GM TUBE TP SCH ×2 (10:13→21:40)
[2018-06-02] MEDS: traZODone HCL 50 MG TABLET (FP) PO SCH (21:40)
[2018-06-02] MEDS: THIAMINE HCL 100 MG TABLET (FP) PO SCH (21:40)
[2018-06-03] MEDS ORDERED: PT OWN MED DRAWER 7, Y5N ONE ×4 (08:57→22:02)
[2018-06-03] MEDS: DOCUSATE SODIUM 100 MG CAPSULE (FP) PO SCH ×2 (10:22→21:58)
[2018-06-03] MEDS: PRENATAL VITAMINS W/ FOLIC ACID TABLET (FP) PO SCH (10:22)
[2018-06-03] MEDS: SERTRALINE HCL 50 MG TABLET (FP) PO SCH (10:22)
[2018-06-03] MEDS: PANTOPRAZOLE 20 MG TABLET (FP) PO SCH ×2 (10:22→21:58)
[2018-06-03] MEDS: hydrOXYzine PAMOATE 50 MG CAPSULE (FP) PO PRN ×2 (10:23→22:00)
[2018-06-03] MEDS: CHLORHEXIDINE GLUCONATE 118 ML MOUTHWASH MM SCH ×2 (10:23→22:03)
[2018-06-03] MEDS: HYDROCORTISONE 2.5% TOPICAL CREAM 30 GM TUBE TP SCH ×2 (10:24→22:01)
[2018-06-03] MEDS: traZODone HCL 50 MG TABLET (FP) PO SCH (21:58)
[2018-06-03] MEDS: THIAMINE HCL 100 MG TABLET (FP) PO SCH (21:58)
[2018-06-03] MEDS: MELATONIN 5 MG TABLETS PO PRN (22:02)
[2018-06-04] MEDS ORDERED: PT OWN MED DRAWER 7, Y5N ONE (08:50)
[2018-06-04] MEDS: SERTRALINE HCL 50 MG TABLET (FP) PO SCH (10:10)
[2018-06-04] MEDS: PANTOPRAZOLE 20 MG TABLET (FP) PO SCH ×2 (10:10→21:23)
[2018-06-04] MEDS: PRENATAL VITAMINS W/ FOLIC ACID TABLET (FP) PO SCH (10:10)
[2018-06-04] MEDS: DOCUSATE SODIUM 100 MG CAPSULE (FP) PO SCH ×2 (10:11→21:24)
[2018-06-04] MEDS: HYDROCORTISONE 2.5% TOPICAL CREAM 30 GM TUBE TP SCH ×2 (10:11→21:26)
[2018-06-04] MEDS: hydrOXYzine PAMOATE 50 MG CAPSULE (FP) PO PRN ×3 (10:12→21:23)
[2018-06-04] MEDS: CHLORHEXIDINE GLUCONATE 118 ML MOUTHWASH MM SCH ×2 (10:13→21:25)
[2018-06-04] MEDS: THIAMINE HCL 100 MG TABLET (FP) PO SCH (21:23)
[2018-06-04] MEDS: traZODone HCL 50 MG TABLET (FP) PO SCH (21:23)
[2018-06-05] MEDS ORDERED: PT OWN MED DRAWER 7, Y5N ONE ×2 (08:35→19:46)
[2018-06-05] MEDS: CHLORHEXIDINE GLUCONATE 118 ML MOUTHWASH MM SCH ×2 (10:03→21:59)
[2018-06-05] MEDS: PRENATAL VITAMINS W/ FOLIC ACID TABLET (FP) PO SCH (10:04)
[2018-06-05] MEDS: hydrOXYzine PAMOATE 50 MG CAPSULE (FP) PO PRN ×3 (10:04→21:58)
[2018-06-05] MEDS: PANTOPRAZOLE 20 MG TABLET (FP) PO SCH ×2 (10:04→21:58)
[2018-06-05] MEDS: DOCUSATE SODIUM 100 MG CAPSULE (FP) PO SCH ×2 (10:04→21:58)
[2018-06-05] MEDS: SERTRALINE HCL 50 MG TABLET (FP) PO SCH (10:04)
[2018-06-05] MEDS: HYDROCORTISONE 2.5% TOPICAL CREAM 30 GM TUBE TP SCH ×2 (10:05→22:06)
[2018-06-05] MEDS: traZODone HCL 50 MG TABLET (FP) PO SCH (21:58)
[2018-06-05] MEDS: THIAMINE HCL 100 MG TABLET (FP) PO SCH (21:58)
[2018-06-05] MEDS: MELATONIN 5 MG TABLETS PO PRN (22:00)
[2018-06-06] MEDS ORDERED: PT OWN MED DRAWER 7, Y5N ONE ×2 (10:08→22:06)
[2018-06-06] MEDS: DOCUSATE SODIUM 100 MG CAPSULE (FP) PO SCH ×2 (10:08→22:03)
[2018-06-06] MEDS: SERTRALINE HCL 50 MG TABLET (FP) PO SCH (10:08)
[2018-06-06] MEDS: PRENATAL VITAMINS W/ FOLIC ACID TABLET (FP) PO SCH (10:09)
[2018-06-06] MEDS: hydrOXYzine PAMOATE 50 MG CAPSULE (FP) PO PRN ×2 (10:09→22:03)
[2018-06-06] MEDS: CHLORHEXIDINE GLUCONATE 118 ML MOUTHWASH MM SCH ×2 (10:09→22:07)
[2018-06-06] MEDS: PANTOPRAZOLE 20 MG TABLET (FP) PO SCH ×2 (10:10→22:07)
[2018-06-06] MEDS: HYDROCORTISONE 2.5% TOPICAL CREAM 30 GM TUBE TP SCH ×2 (10:11→22:07)
[2018-06-06] MEDS: THIAMINE HCL 100 MG TABLET (FP) PO SCH (22:03)
[2018-06-06] MEDS: traZODone HCL 50 MG TABLET (FP) PO SCH (22:03)
[2018-06-06] MEDS: MELATONIN 5 MG TABLETS PO PRN (22:04)
[2018-06-07] MEDS ORDERED: PT OWN MED DRAWER 7, Y5N ONE (08:44)
[2018-06-07] MEDS: SERTRALINE HCL 50 MG TABLET (FP) PO SCH (10:05)
[2018-06-07] MEDS: DOCUSATE SODIUM 100 MG CAPSULE (FP) PO SCH ×2 (10:05→21:52)
[2018-06-07] MEDS: PRENATAL VITAMINS W/ FOLIC ACID TABLET (FP) PO SCH (10:05)
[2018-06-07] MEDS: CHLORHEXIDINE GLUCONATE 118 ML MOUTHWASH MM SCH ×2 (10:06→21:55)
[2018-06-07] MEDS: PANTOPRAZOLE 20 MG TABLET (FP) PO SCH ×2 (10:06→21:52)
[2018-06-07] MEDS: HYDROCORTISONE 2.5% TOPICAL CREAM 30 GM TUBE TP SCH ×2 (10:06→21:45)
[2018-06-07] MEDS: hydrOXYzine PAMOATE 50 MG CAPSULE (FP) PO PRN ×3 (10:07→22:42)
--- NOTE | 2018-06-07 11:51 | PN ---
Psychiatric Progress Note Vital Signs: Vital Signs Period Temp Pulse Resp BP Sys/Beltran Pulse Ox Last 24 Hr 97.9 F 83 18-18 112/75 Date of Session: 06/07/18 Chief Complaint:: discharge visit Current Medications: Active Medications Generic Name Dose Route Start Last Admin Trade Name Freq PRN Reason Stop Dose Admin Acetaminophen 650 mg 05/11/18 19:15 05/15/18 21:35 Tylenol - PO 650 mg Q4H PRN Administration FEVER Al Hydroxide/Mg Hydroxide 30 ml 05/11/18 19:15 05/13/18 15:58 Mylanta Oral Suspension - PO 30 ml Q6H PRN Administration DYSPEPSIA Albuterol Sulfate 2 puff 05/11/18 19:14 05/18/18 11:38 Ventolin Hfa Inhaler - IH 2 puff Q4H PRN Administration wheezing Chlorhexidine Gluconate 15 ml 05/25/18 22:00 06/07/18 10:06 Chlorhexidine Gluconate MM 15 ml BID DERRICK Administration Colloidal Oatmeal 1 applic 05/14/18 13:30 06/01/18 22:35 Aveeno Soap - TP 1 applic DAILY PRN Administration HYGEINE Docusate Sodium 100 mg 05/28/18 22:00 06/07/18 10:05 Colace - PO 100 mg BID DERRICK Administration Eucalyptus/Menthol/Phenol/Sorbitol 1 each 05/11/18 19:15 Cepastat Lozenge - MM Q4H PRN SORE THROAT Guaifenesin 10 ml 05/11/18 19:15 Robitussin Dm - PO Q6H PRN COUGH Hydrocortisone 1 applic 05/28/18 22:00 06/07/18 10:06 Anusol 2.5% Hc Cream - TP 1 applic BID DERRICK Administration Hydroxyzine Pamoate 50 mg 05/11/18 19:15 06/07/18 10:07 Vistaril - PO 50 mg Q4H PRN Administration AGITATION Ibuprofen 400 mg 05/11/18 19:15 05/25/18 21:52 Motrin - PO 400 mg Q6H PRN Administration Pain Level 4-6 Loperamide HCl 4 mg 05/11/18 19:15 Imodium - PO Q6H PRN DIARRHEA Magnesium Citrate 300 ml 05/11/18 19:15 Citroma - PO Q48H PRN CONSTIPATION Magnesium Hydroxide 30 ml 05/11/18 19:15 Milk Of Magnesia - PO DAILY PRN CONSTIPATION Melatonin 5 mg 05/11/18 22:00 06/06/18 22:04 Melatonin PO 5 mg HS PRN Administration INSOMNIA Pantoprazole Sodium 20 mg 05/13/18 22:00 06/07/18 10:06 Protonix - PO 20 mg BID DERRICK Administration Multivit/Folic Acid/Iron 1 tab 05/12/18 10:00 06/07/18 10:05 Vitamins (Sjr) - PO 1 tab DAILY DERRICK Administration Pseudoephedrine/Triprolidine 1 combo 05/11/18 19:15 Actifed - PO TID PRN NASAL CONGESTION Sertraline HCl 100 mg 05/22/18 11:00 06/07/18 10:05 Zoloft - PO 100 mg DAILY DERRICK Administration Thiamine HCl 100 mg 05/11/18 22:00 06/06/18 22:03 Vitamin B1 - PO 100 mg HS DERRICK Administration Trazodone HCl 50 mg 05/11/18 22:00 06/06/18 22:03 Desyrel - PO 50 mg HS DERRICK Administration Current Side Effect: No Lab tests ordered: No Lab tests reviewed: Yes Provider note:: Patient will complete this program tomorrow 06/08/18.She has met her treatment goals and will continue to address her issues on outpatient basis.Patient reports finding that current medications:Zoloft 100 mg po hs and Trazodone 100 mg po hs help to cope with depressed mood,anxiety,mood instability . Total face to face time:: 30 Psychiatric Treatment Plan - Problem List (1) Alcohol dependence with uncomplicated withdrawal Current Visit: Yes (2) History of asthma Current Visit: Yes (3) Obesity (BMI 30-39.9) Current Visit: Yes (4) Substance induced mood disorder Current Visit: Yes
--- NOTE | 2018-06-07 17:12 | PN ---
[facility] Progress Note Note: Vital Signs Temperature 97.9 F 06/07/18 07:03 Pulse Rate 83 06/07/18 07:03 Respiratory Rate 18 06/07/18 07:03 Blood Pressure 112/75 06/07/18 07:03 O2 Sat by Pulse Oximetry (%) Patient schedule to complete this program 06/08/18. Patient in medically stable. Patient to continue to address chronic conditions with primary care provider. Patient to follow up 1 -2 weeks post discharge.
[2018-06-07] MEDS: THIAMINE HCL 100 MG TABLET (FP) PO SCH (21:52)
[2018-06-07] MEDS: traZODone HCL 50 MG TABLET (FP) PO SCH (21:52)
[2018-06-07] MEDS: MELATONIN 5 MG TABLETS PO PRN (21:53)
[2018-06-08 07:01] VITALS: BP 114/78; PULSE 82; TEMP 98
[2018-06-08] MEDS: CHLORHEXIDINE GLUCONATE 118 ML MOUTHWASH MM SCH (09:28)
[2018-06-08] MEDS: PRENATAL VITAMINS W/ FOLIC ACID TABLET (FP) PO SCH (09:28)
[2018-06-08] MEDS: DOCUSATE SODIUM 100 MG CAPSULE (FP) PO SCH (09:28)
[2018-06-08] MEDS: HYDROCORTISONE 2.5% TOPICAL CREAM 30 GM TUBE TP SCH (09:28)
[2018-06-08] MEDS: SERTRALINE HCL 50 MG TABLET (FP) PO SCH (09:28)
[2018-06-08] MEDS: hydrOXYzine PAMOATE 50 MG CAPSULE (FP) PO PRN (09:28)
[2018-06-08] MEDS: PANTOPRAZOLE 20 MG TABLET (FP) PO SCH (09:29)
== END 2018-06-08 09:44 | disposition home or self-care (01) | DRG 772 ==
LOC: YASAS 18:38 → Y3E 18:39
PROVIDERS: ADMIT Psychiatry & Neurology Psychiatry; ATTEND Psychiatry & Neurology Psychiatry
PROC: HZ42ZZZ Group Counseling for Substance Abuse Treatment, Cognitive-Behavioral (ICD-10-PCS; principal; 2018-05-11)
DX: F10.20 Alcohol dependence, uncomplicated (principal); F19.24 Other psychoactive substance dependence with psychoactive substance-induced mood disorder; K64.8 Other hemorrhoids; J45.909 Unspecified asthma, uncomplicated; R82.99 Other abnormal findings in urine; L98.8 Other specified disorders of the skin and subcutaneous tissue; K21.9 Gastro-esophageal reflux disease without esophagitis; E66.9 Obesity, unspecified
CPT/HCPCS: 36415; 81003; 87086; 87389